=== PATIENT | male | born 1985 | race American Indian/Alaskan Native ===

== ENCOUNTER 2021-11-09 02:53 | Emergency (ER) | payer MEDICARE ==
[2021-11-09] MEDS ORDERED: ONDANSETRON 4 MG ODT TAB PO ONE (06:12)
[2021-11-09 06:22] LABS: Basophils % (Auto) 0.2 % (0.0-1.8); Hematocrit 38.2 % (35.5-45.6); Hemoglobin 13.4 gm/dl (11.8-15.2); Lymphocytes # (Auto) 2.5 K/mm3 (1.2-5.4); Lymphocytes % (Auto) 16.7 % (13.4-35.0); Mean Corpuscular HGB Conc 35 % (32-34); Mean Corpuscular Volume 88 fl (84-94); Monocytes # (Auto) 1.1 K/mm3 (0.0-0.8); Monocytes % (Auto) 7.1 % (0.0-7.3); Platelet Count 245 K/mm3 (140-440); Red Blood Count 4.32 M/mm3 (3.65-5.03); Red Cell Distribution Width 14.2 % (13.2-15.2)
[2021-11-09 06:33] LABS: Alanine Aminotransferase 11 units/L (7-56); Albumin 4.2 g/dL (3.9-5); BUN/Creatinine Ratio 18; Blood Urea Nitrogen 25 mg/dL (9-20); Calcium 9.8 mg/dL (8.4-10.2); Hemolysis Index 5
[2021-11-09] MEDS ORDERED: SODIUM CHLORIDE 0.9% 1000 ML 1,000 ML IV ONE (07:18)
[2021-11-09] MEDS ORDERED: ONDANSETRON 4 MG/2 ML INJ IV ONE (07:18)
--- NOTE | 2021-11-09 07:23 | Emergency Department Report ---
ED Abdominal Pain HPI - General Chief Complaint: Nausea/Vomiting/Diarrhea Stated Complaint: NAUSEA, VOMITING Time Seen by Provider: 11/09/21 06:13 Source: patient Mode of arrival: Stretcher Limitations: No Limitations - History of Present Illness Initial Comments: Patient is a 36-year-old male presenting to ED with complaint of nausea vomiting that began yesterday evening after eating grilled chicken. He reports history of HIV and non-Hodgkin's lymphoma in remission. Severity scale (0 -10): 0 - Related Data Previous Rx's Medication Instructions Recorded Last Taken Type Ondansetron [Zofran Odt] 4 mg PO Q8HR #14 tab.rapdis 11/09/21 Unknown Rx Allergies Allergy/AdvReac Type Severity Reaction Status Date / Time ciprofloxacin [From Cipro] Allergy Rash Verified 11/09/21 03:53 Sulfa (Sulfonamide Allergy Rash Verified 11/09/21 03:52 Antibiotics) ED Review of Systems ROS: Stated complaint: NAUSEA, VOMITING Other details as noted in HPI Constitutional: denies: chills, fever Respiratory: denies: cough, shortness of breath, wheezing Cardiovascular: denies: chest pain, palpitations Gastrointestinal: nausea, vomiting Musculoskeletal: denies: back pain, joint swelling, arthralgia Skin: denies: rash, lesions Neurological: denies: headache, weakness, paresthesias Psychiatric: denies: anxiety, depression ED Past Medical Hx - Medications Home Medications: Home Medications Medication Instructions Recorded Confirmed Last Taken Type Ondansetron [Zofran Odt] 4 mg PO Q8HR #14 tab.rapdis 11/09/21 Unknown Rx ED Physical Exam - General Limitations: No Limitations General appearance: alert, in no apparent distress - Head Head exam: Present: atraumatic, normocephalic - Respiratory Respiratory exam: Present: normal lung sounds bilaterally. Absent: respiratory distress - Cardiovascular Cardiovascular Exam: Present: regular rate, normal rhythm, normal heart sounds - GI/Abdominal GI/Abdominal exam: Present: soft. Absent: distended, tenderness - Rectal Rectal exam: Present: deferred - Neurological Exam Neurological exam: Present: alert, oriented X3 - Psychiatric Psychiatric exam: Present: normal affect, normal mood - Skin Skin exam: Present: warm, dry, intact, normal color ED Course Vital Signs 11/09/21 11/09/21 03:17 05:03 Temperature 98.0 F Pulse Rate 90 Respiratory 16 Rate Blood Pressure 104/48 [Left] O2 Sat by Pulse 97 98 Oximetry ED Medical Decision Making - Lab Data Result diagrams: 11/09/21 05:57 11/09/21 05:57 - Medical Decision Making Patient given IV Zofran along with 1 L normal saline bolus. Labs reviewed. L eukocytosis present at 15,000. Patient is afebrile and hemodynamically stable. Remaining CBC unremarkable. CMP grossly unremarkable. On reassessment patient is lying in bed and does not appear to be in any acute distress. Likely gastroenteritis. Will discharge home with Zofran. Critical care attestation.: If time is entered above; I have spent that time in minutes in the direct care of this critically ill patient, excluding procedure time. ED Disposition Clinical Impression: Nausea and vomiting, Food poisoning Disposition: 01 HOME / SELF CARE / HOMELESS Is pt being admited?: No Condition: Stable Instructions: Food Poisoning, [id number], Nausea and Vomiting, Adult Referrals: PRIMARY CARE, [Primary Care Provider] - 3-5 Days
[2021-11-09 11:18] VITALS: BP 117/58
== END 2021-11-09 11:18 | disposition home or self-care (01) ==
LOC: ED 02:53
DX: R11.2 Nausea with vomiting, unspecified (principal); A05.9 Bacterial foodborne intoxication, unspecified; Z88.2 Allergy status to sulfonamides
CPT/HCPCS: 36415; 80053; 85025; 96361; 96374; 99283; J2405; J7030